=== PATIENT | male | born 1990 | race American Indian/Alaskan Native ===

== ENCOUNTER 2017-12-20 23:57 | Emergency (ER) | payer MEDICAID ==
[2017-12-20 23:57] VITALS: BMI 25.1
[2017-12-21 00:01] VITALS: RESP 18
--- NOTE | 2017-12-21 00:12 | C.PDOC ---
History Of Present Illness 27 y/o M p/w abdominal pain tonight after eating "way too many buffalo wings" and Sprite soda. Patient states he feels fine now and has no complaints. He denies any fever, chills, dyspnea, vomiting, diarrhea, constipation, or dysuria and states he wishes to go home. Time Seen by Provider: 12/21/17 00:03 Chief Complaint (Nursing): Abdominal Pain Past Medical History Vital Signs: Last Vital Signs Temp 97.9 F 12/21/17 00:00 Pulse 77 12/21/17 00:00 Resp 18 12/21/17 00:00 BP 117/79 12/21/17 00:00 Pulse Ox 100 12/21/17 00:00 - Medical History PMH: Anxiety, Bipolar Disorder, Depression, Hypothyroidism, Schizophrenia Denies: Diabetes, Hepatitis, HIV, HTN, Seizures, Sexually Transmitted Disease Family History: States: Unknown Family Hx - Social History Hx Tobacco Use: No (uncooperative, refuse to answer) Hx Alcohol Use: No (unobtainable) Hx Substance Use: No (unobtainable) - Immunization History Hx Tetanus Toxoid Vaccination: No Hx Influenza Vaccination: No Hx Pneumococcal Vaccination: No Review Of Systems Except As Marked, All Systems Reviewed And Found Negative. Constitutional: Negative for: Fever Respiratory: Negative for: Shortness of Breath Physical Exam - Physical Exam Additional Physical Exam Comments: Gen: NAD Head: Atraumatic Eyes: No scleral icterus ENT: MMM Neck: Supple CV: Regular rate Resp: No accessory muscle use Abd: Soft, NT, ND Back: No CVA tenderness Extremities: No swelling or tenderness Skin: No rash Neuro: Alert ED Course And Treatment O2 Sat by Pulse Oximetry: 100 Medical Decision Making Medical Decision Making: Patient offered further lab testing but he refused. Will discharge, instructed to return to ED for worsening pain, vomiting, dyspnea, or any other problem. Disposition - Disposition Disposition: HOME/ ROUTINE Disposition Time: 00:11 Condition: STABLE Instructions: Acute Abdomen (Belly Pain) - Clinical Impression Clinical Impression: Abdominal pain
[2017-12-21 03:33] VITALS: BP 116/70; PULSE 75; TEMP 98; O2SAT 99
== END 2017-12-21 03:50 | disposition home or self-care (01) ==
LOC: SUPCPDRO 23:57 → C.ER 23:57
DX: R10.9 Unspecified abdominal pain (principal)

== ENCOUNTER 2018-03-31 15:17 | Emergency (ER) | payer MEDICAID ==
[2018-03-31 15:17] VITALS: BMI 25.1
[2018-03-31 15:28] VITALS: BP 106/68; PULSE 89; RESP 18; TEMP 98.1; O2SAT 98
[2018-03-31] MEDS ORDERED: Lidocaine 1% Inj (20ml) INFIL STA (15:32)
[2018-03-31] MEDS ORDERED: Tmp-Smz 800 mg-160 mg DS Tab ONE (15:39)
[2018-03-31] MEDS ORDERED: Lidocaine 2% MPF (5 ml) Inj ONE (15:39)
[2018-03-31] MEDS ORDERED: Tmp-Smz 800 mg-160 mg DS Tab PO SCH (15:45)
--- NOTE | 2018-03-31 16:01 | C.PDOC ---
History Of Present Illness 27 y/o male presents to ED with complaints of right thigh pain consistent with lump to area for 4 days. Patient denies fever, chills, injury or any other complaints at this time. Time Seen by Provider: 03/31/18 15:28 Chief Complaint (Nursing): Abnormal Skin Integrity History Per: Patient History/Exam Limitations: no limitations Onset/Duration Of Symptoms: Days Current Symptoms Are (Timing): Still Present Past Medical History Reviewed: Historical Data, Nursing Documentation, Vital Signs Vital Signs: Last Vital Signs Temp 98.1 F 03/31/18 15:24 Pulse 89 03/31/18 15:24 Resp 18 03/31/18 15:24 BP 106/68 03/31/18 15:24 Pulse Ox 98 03/31/18 17:36 - Medical History PMH: Anxiety, Bipolar Disorder, Depression, Hypothyroidism, Schizophrenia Surgical History: No Surg Hx Family History: States: No Known Family Hx - Social History Hx Tobacco Use: No (uncooperative, refuse to answer) Hx Alcohol Use: No (unobtainable) Hx Substance Use: No (unobtainable) - Immunization History Hx Tetanus Toxoid Vaccination: No Hx Influenza Vaccination: No Hx Pneumococcal Vaccination: No Review Of Systems Constitutional: Negative for: Fever, Chills Musculoskeletal: Positive for: Leg Pain Skin: Negative for: Rash, Bruising Neurological: Negative for: Numbness Physical Exam - Physical Exam Appears: Non-toxic, No Acute Distress Skin: Warm, Dry, Other (1x2cm tender and fluctuant mass to inner right thigh near groin) Head: Atraumatic, Normacephalic Eye(s): bilateral: Normal Inspection Neck: Normal ROM Extremity: Normal ROM, Capillary Refill (<2 seconds), No Deformity Extremity: Bilateral: Normal ROM Neurological/Psych: Oriented x3, Normal Speech, Normal Motor, Normal Sensation Gait: Steady ED Course And Treatment O2 Sat by Pulse Oximetry: 98 (RA) Pulse Ox Interpretation: Normal - Incision & Drainage Of Abscess Anesthesia: Lidocaine 2% Prep Used: Sterile Water, Betadine Procedure: Incised W/Scalpel Blade#: (11), Drained Pus, Irrigated Cavity W/ Saline, Packed W/Gauze (half inch iodoform) Medical Decision Making Medical Decision Making: Impression: leg abscess Plan: * I&D procedure Progress: Patient tolerated procedure well, area packed with gauze. Patient d/c with instructed follow up in 2 days for removal Disposition Counseled Patient/Family Regarding: Diagnosis, Need For Followup, Rx Given - Disposition Referrals: Ivett Jarvis MD [Staff Provider] - Disposition: HOME/ ROUTINE Disposition Time: 15:59 Condition: STABLE Additional Instructions: Take antibiotic twice daily Return to ED or follow up iwht your doctor for wound check and packing removal in 2 days Take pain medicine as needed Prescriptions: Ibuprofen [Motrin] 1 tab PO TID PRN #30 tab PRN Reason: Pain Sulfamethoxazole/Trimethoprim [Bactrim DS 800 mg-160 mg] 1 tab PO BID #14 tab Instructions: Abscess Incision and Drainage (DC) Forms: [employer] (Maori) - POA Present On Arrival: None - Clinical Impression Clinical Impression: Abscess of leg, right - PA / UNDERWRITING TECHNICIAN / Resident Statement MD/DO has reviewed & agrees with the documentation as recorded. - Scribe Statement The provider has reviewed the documentation as recorded by the Lexiibjulian Clark All medical record entries made by the Quiana were at my direction and personally dictated by me. I have reviewed the chart and agree that the record accurately reflects my personal performance of the history, physical exam, medical decision making, and the department course for this patient. I have also personally directed, reviewed, and agree with the discharge instructions and disposition.
== END 2018-03-31 16:18 | disposition home or self-care (01) ==
LOC: C.ER 15:17
DX: L02.415 Cutaneous abscess of right lower limb (principal)

== ENCOUNTER 2018-04-07 17:37 | Emergency (ER) | payer MEDICAID ==
[2018-04-07 17:40] VITALS: BMI 25.1
[2018-04-07 17:48] VITALS: BP 92/57; PULSE 79; RESP 18; TEMP 98.1; O2SAT 98
--- NOTE | 2018-04-07 17:56 | C.PDOC ---
History Of Present Illness 27-year-old male presents to the ED for a wound check. Patient is s/p I&D 1 week ago. He reports the packing already fell out and he has finished the antibiotics. States the area feels better. Otherwise he denies any fever or chills. Patient offers no other complaints at this time. Time Seen by Provider: 04/07/18 17:55 Chief Complaint (Nursing): Wound Check History Per: Patient History/Exam Limitations: no limitations Onset/Duration Of Symptoms: Days Ago (7) Current Symptoms Are (Timing): Better Past Medical History Reviewed: Historical Data, Nursing Documentation, Vital Signs Vital Signs: Last Vital Signs Temp 98.1 F 04/07/18 17:45 Pulse 79 04/07/18 17:45 Resp 18 04/07/18 17:45 BP 92/57 L 04/07/18 17:45 Pulse Ox 98 04/07/18 18:36 - Medical History PMH: Anxiety, Bipolar Disorder, Depression, Hypothyroidism, Schizophrenia Denies: Diabetes, Hepatitis, HIV, HTN, Seizures, Sexually Transmitted Disease Family History: States: Unknown Family Hx - Social History Hx Tobacco Use: No (uncooperative, refuse to answer) Hx Alcohol Use: No (unobtainable) Hx Substance Use: No (unobtainable) - Immunization History Hx Tetanus Toxoid Vaccination: No Hx Influenza Vaccination: No Hx Pneumococcal Vaccination: No Review Of Systems Except As Marked, All Systems Reviewed And Found Negative. Constitutional: Negative for: Fever, Chills Skin: Positive for: Lesions (improved wound to right thigh) Physical Exam - Physical Exam Appears: Non-toxic, No Acute Distress Skin: Warm, Dry, Other (Right inner thigh with well healing wound; no packing, drainage, induration, or erythema) Head: Atraumatic, Normacephalic Eye(s): bilateral: Normal Inspection Extremity: Bilateral: Normal Color And Temperature, Normal ROM Pulses: Left Dorsalis Pedis: Normal, Right Dorsalis Pedis: Normal Neurological/Psych: Oriented x3, Normal Speech ED Course And Treatment O2 Sat by Pulse Oximetry: 98 (RA) Pulse Ox Interpretation: Normal Medical Decision Making Medical Decision Making: Impression: Wound Check Plan: Reassured patient that wound is healing well. Advised to continue with wound care and follow up with PMD as needed. There is agreement to discharge plan. Disposition Counseled Patient/Family Regarding: Need For Followup - Disposition Referrals: Ivett Jarvis MD [Staff Provider] - Disposition: HOME/ ROUTINE Disposition Time: 17:55 Condition: GOOD Additional Instructions: WOUND LOOKS GOOD AND HEALING Instructions: Wound Care (DC) Forms: [employer] ([place]) - POA Present On Arrival: None - Clinical Impression Clinical Impression: Visit for wound check - PA / COLLEGE OR [employer]IVERSITY FACULT[employer] MEMBER / Resident Statement MD/DO has reviewed & agrees with the documentation as recorded. - Scribe Statement The provider has reviewed the documentation as recorded by the Scribe (Lucero Purcell) All medical record entries made by the Scribe were at my direction and personally dictated by me. I have reviewed the chart and agree that the record accurately reflects my personal performance of the history, physical exam, medical decision making, and the department course for this patient. I have also personally directed, reviewed, and agree with the discharge instructions and disposition.
== END 2018-04-07 18:06 | disposition home or self-care (01) ==
LOC: C.ER 17:37
DX: Z48.00 Encounter for change or removal of nonsurgical wound dressing (principal)

== ENCOUNTER 2018-11-15 17:41 | Emergency (ER) | payer MEDICAID ==
[2018-11-15 18:37] VITALS: BP 105/68; PULSE 86; RESP 20; TEMP 98.2; O2SAT 99
--- NOTE | 2018-11-15 18:40 | C.PDOC ---
History Of Present Illness 28 year old male comes in to ED stating that 2 days ago a glass light bulb broke and patient felt a piece of glass go in to his right hand (questionable foreign body). Patient denies any other injuries, numbness, or weakness. Time Seen by Provider: 11/15/18 18:40 Chief Complaint (Nursing): Foreign Body History Per: Patient History/Exam Limitations: no limitations Onset/Duration Of Symptoms: Days Current Symptoms Are (Timing): Still Present Past Medical History Reviewed: Historical Data, Nursing Documentation, Vital Signs Vital Signs: Last Vital Signs Temp 98.2 F 11/15/18 17:55 Pulse 86 11/15/18 17:55 Resp 20 11/15/18 17:55 BP 105/68 11/15/18 17:55 Pulse Ox 99 11/15/18 17:55 Family History: States: No Known Family Hx - Social History Hx Alcohol Use: No Hx Substance Use: No - Immunization History Hx Tetanus Toxoid Vaccination: No Hx Influenza Vaccination: No Hx Pneumococcal Vaccination: No Review Of Systems Except As Marked, All Systems Reviewed And Found Negative. Constitutional: Negative for: Fever, Chills Musculoskeletal: Positive for: Other (questionable foreign body in right hand). Negative for: Hand Pain Neurological: Negative for: Weakness, Numbness Physical Exam - Physical Exam Appears: Non-toxic, No Acute Distress Skin: Warm, Dry Head: Atraumatic, Normacephalic Eye(s): bilateral: Normal Inspection Oral Mucosa: Moist Neck: Supple Extremity: Other (0.5cm area with questionable "foreign body" to mid right hand) Extremity: Bilateral: Normal Color And Temperature, Normal ROM Neurological/Psych: Oriented x3, Normal Speech ED Course And Treatment O2 Sat by Pulse Oximetry: 99 (RA) Pulse Ox Interpretation: Normal - Other Rad Hand XR X-Ray: Interpreted by Me Interpretation: No foreign body noted. Procedure: Blank - Time Out Time Out: Side verified, Site verified - Procedure Procedure:: Glass foreign body removal - Consent obtained: Consent obtained: Verbal - Performed by: Performed by:: Mid-level provider - Contraindications: Contraindications:: None - Anesthetic Technique Anesthetic Technique: Local - Topical: Local/Regional Anesthetic:: Lidocaine 1% w/epi - Location Location: Right, Hand - Needle Size Needle Size:: 25 gauge needle and 11 blade used - Result Result: Other (foreign body attempted to be removed, area was searched but no foreign body seen.) - Post-Procedure Post-procedure:: Dressing applied, Other (Betadine applied) - Patient Tolerated Procedure Patient Tolerated Procedure:: Well Medical Decision Making Medical Decision Making: Plan: --Right Hand XR No fracture or foreign bodies seen on Xray, but ? foreign felt on exam. Exploration attempted without success. The patient was instructed to follow up with the Hand surgeon within 1-2 days. Disposition - Disposition Referrals: Ivett Jarvis MD [Staff Provider] - Ivy Maloney MD [Staff Provider] - Disposition: HOME/ ROUTINE Disposition Time: 20:36 Condition: STABLE Additional Instructions: Follow up with the medical doctor within 1-2 days. Return if worsened. Instructions: Removal of Foreign Body in Skin Forms: [employer] (Iraqi) - Clinical Impression Clinical Impression: Skin foreign body - PA / CREDIT COLLECTIONS REP / Resident Statement MD/DO has reviewed & agrees with the documentation as recorded. - Scribe Statement The provider has reviewed the documentation as recorded by the Scribe Laura Franklin All medical record entries made by the Scribe were at my direction and personally dictated by me. I have reviewed the chart and agree that the record accurately reflects my personal performance of the history, physical exam, medical decision making, and the department course for this patient. I have also personally directed, reviewed, and agree with the discharge instructions and disposition.
--- NOTE | 2018-11-16 08:09 | RAD ---
PROCEDURE: Right Hand Radiographs. HISTORY: hand laceration, r/o foreign body COMPARISON: None. FINDINGS: BONES: Normal. No fracture. JOINTS: Normal. No osteoarthritic changes. SOFT TISSUES: Normal. OTHER FINDINGS: None. IMPRESSION: Normal right hand radiographs. No radiopaque foreign body visualized
== END 2018-11-15 20:50 | disposition home or self-care (01) ==
LOC: C.ER 17:41 → EDBD 17:41 → MERGE 17:41 → C.ER 20:50
DX: S60.551A Superficial foreign body of right hand, initial encounter (principal); X58.XXXA Exposure to other specified factors, initial encounter